=== PATIENT | female | born 1950 | race Caucasian/White ===

== ENCOUNTER 2017-04-20 09:04 | Inpatient (IN) ==
[2017-04-20 11:52] LABS: Amorphous Crystals,Urine Few /HPF (Few); Apearance,Urine CLOUDY (Clear); Bacteria,Urine Occasional /HPF (Few); Bilirubin,Urine Negative (Negative); Blood, Urine Negative (Negative); Glucose,Urine (UA) Negative (Negative); Ketones,Urine Negative (Negative); Mucus,Urine Occasional /LPF (Occasional); Nitrite,Urine Negative (Negative); Protein,Urine Negative; RBC,Urine 2 /HPF (0-4); Squamous Epithelial Cell,Urine Occasional /HPF (0-10); Urine Color Yellow (Yellow); Urine Specific Gravity 1.016 (1.001-1.035); Urine Urobilinogen < 2.0 EU/DL (0.2-1.0); WBC,Urine 2 /HPF (0-6)
[2017-04-20] MEDS ORDERED: ONDANSETRON 4 MG/2 ML VIAL IV STA (12:31)
[2017-04-20] MEDS ORDERED: MORPHINE 2 MG/1 ML SYRINGE IV STA (12:31)
[2017-04-20] MEDS ORDERED: SODIUM CHLORIDE 0.9% 1,000 ML IV STA (12:31)
[2017-04-20] MEDS ORDERED: ONDANSETRON 4 MG/2 ML VIAL ONE (12:47)
[2017-04-20] MEDS ORDERED: MORPHINE 2 MG/1 ML SYRINGE ONE (12:47)
[2017-04-20 12:52] LABS: Basophils % 0.2 % (0.0-0.8); Eosinophils % 0.1 % (0.00-10.9); Hematocrit 38.2 VOL% (35.7-47.0); Hemoglobin 12.8 GM/DL (12.0-16.0); Immature Granulocytes % 0.2 %; Immature Granulocytes Absolute 0.02 #; Lymphocytes # 1.3 10*3/uL (1.4-4.0); Lymphocytes % 14.3 % (21.3-54.2); Mean Corpuscular HGB Conc 33.5 GM/DL (32-36); Mean Corpuscular Hemoglobin 31 PG (27-34); Mean Corpuscular Volume 93.4 FL (87-102); Mean Platelet Volume 11.6 FL (9.6-12.0); Monocytes # 0.4 10*3/uL (0.11-0.8); Monocytes % 4.8 % (1.7-12.7); Neutrophils # 7.1 10*3/uL (1.4-7.4); Neutrophils % 80.4 % (38.7-73.9); Platelet Count 161 T/CUMM (130-400); Red Blood Count 4.09 MC/CUMM (3.8-5.5); Red Cell Distribution Width 13.4 % (9.3-17.3); White Blood Count 8.8 T/CUMM (4-12)
[2017-04-20 13:11] LABS: Lactic Acid 2.1 MMOL/L (0.4-2.0)
[2017-04-20 13:34] LABS: Alanine Aminotransferase 155 U/L (13-56); Albumin 4.1 G/DL (3.4-5.0); Alkaline Phosphatase 61 U/L (45-117); Amylase 41 U/L (25-115); Aspartate Amino Transferase 235 U/L (0-37); Blood Urea Nitrogen 14 MG/DL (7-18); Calcium 9.5 MG/DL (8.5-10.1); Glucose 116 MG/DL (74-106); Magnesium 2.1 MG/DL (1.8-2.4); Potassium 4.1 MMOL/L (3.5-5.1); Sodium 136 MMOL/L (136-145); Total Protein 7.8 G/DL (6.4-8.3)
[2017-04-20] MEDS ORDERED: ONDANSETRON 4 MG/2 ML VIAL IV PRN (14:39)
[2017-04-20] MEDS ORDERED: MORPHINE 10 MG/1 ML VIAL IV PRN (14:39)
[2017-04-20] MEDS ORDERED: BISACODYL 5 MG TABLET PO PRN (14:39)
[2017-04-20] MEDS ORDERED: ALUMINUM/MAGNES/SIMETH MAX STR 30 ML UDCUP PO PRN (14:39)
[2017-04-20] MEDS ORDERED: KETOROLAC 15 MG/1 ML VIAL IV PRN (14:39)
[2017-04-20] MEDS ORDERED: ACETAMINOPHEN 325 MG TABLET PO PRN (14:39)
[2017-04-20] MEDS: LACTATED RINGERS 1,000 ML IV SCH (16:01)
[2017-04-20] MEDS: PIPERACILLIN/TAZOBACTAM 3,375 MG in SODIUM CHLORIDE 0.9% 100 ML IV SCH (17:32)
[2017-04-20] MEDS: DOCUSATE SODIUM 100 MG CAPSULE PO SCH (20:10)
[2017-04-20] MEDS ORDERED: ENOXAPARIN 40 MG/0.4 ML SYRINGE SUBCUT SCH (21:00)
[2017-04-21] MEDS: PIPERACILLIN/TAZOBACTAM 3,375 MG in SODIUM CHLORIDE 0.9% 100 ML IV SCH ×3 (00:38→17:22)
[2017-04-21 05:55] LABS: Albumin 3.1 G/DL (3.4-5.0); Bilirubin,Direct 0.3 MG/DL (0.0-0.20); Bilirubin,Indirect 0.9 MG/DL (0.0-1.0); Bilirubin,Total 1.2 MG/DL (0.2-1.0); Total Protein 6.5 G/DL (6.4-8.3)
[2017-04-21] MEDS: LACTATED RINGERS 1,000 ML IV SCH (08:11)
[2017-04-21] MEDS ORDERED: fentaNYL 100 MCG/2 ML VIAL ONE (10:36)
[2017-04-21] MEDS ORDERED: MIDAZOLAM 2 MG/2 ML VIAL ONE (10:36)
[2017-04-21 10:38] LABS: PT Patient Result 10.6 SECS
[2017-04-21] MEDS ORDERED: PROPOFOL 200 MG/20 ML VIAL IV ONE (10:50)
[2017-04-21] MEDS ORDERED: LIDOCAINE 2% 5 ML VIAL ONE (10:50)
[2017-04-21] MEDS ORDERED: GLUCAGON 1 MG VIAL ONE (10:59)
[2017-04-21] MEDS ORDERED: INDOMETHACIN SUPP 50 MG SUPP RECTAL ONE (11:00)
[2017-04-21] MEDS ORDERED: ALPRAZolam 0.25 MG TABLET PO PRN (11:45)
[2017-04-21] MEDS ORDERED: FUROSEMIDE 20 MG TABLET PO PRN (11:45)
[2017-04-21] MEDS ORDERED: ESTRADIOL TRANSDERM SCH (13:00)
[2017-04-21] MEDS: DOCUSATE SODIUM 100 MG CAPSULE PO SCH ×2 (14:25→21:51)
[2017-04-21] MEDS: PANTOPRAZOLE 40 MG TABLET PO SCH (14:26)
[2017-04-21] MEDS: DEXT 5% NACL 0.45% KCL 20 MEQ 20 MEQ/1,000 ML BAG IV SCH ×2 (14:29→21:52)
[2017-04-21] MEDS: GABAPENTIN 600 MG TABLET PO SCH (21:51)
[2017-04-22] MEDS: PIPERACILLIN/TAZOBACTAM 3,375 MG in SODIUM CHLORIDE 0.9% 100 ML IV SCH ×3 (01:10→16:44)
[2017-04-22] MEDS: DEXT 5% NACL 0.45% KCL 20 MEQ 20 MEQ/1,000 ML BAG IV SCH ×4 (05:49→23:23)
[2017-04-22 05:53] LABS: Basophils % 0.5 % (0.0-0.8); Eosinophils # 0.2 10*3/uL (0.0-0.87); Eosinophils % 2.7 % (0.00-10.9); Hematocrit 31.3 VOL% (35.7-47.0); Hemoglobin 10.7 GM/DL (12.0-16.0); Immature Granulocytes % 0.3 %; Immature Granulocytes Absolute 0.02 #; Lymphocytes # 2.4 10*3/uL (1.4-4.0); Lymphocytes % 37.1 % (21.3-54.2); Mean Corpuscular HGB Conc 34.2 GM/DL (32-36); Mean Corpuscular Hemoglobin 32 PG (27-34); Mean Corpuscular Volume 93.2 FL (87-102); Mean Platelet Volume 12.2 FL (9.6-12.0); Monocytes # 0.5 10*3/uL (0.11-0.8); Monocytes % 8.5 % (1.7-12.7); Neutrophils # 3.3 10*3/uL (1.4-7.4); Neutrophils % 50.9 % (38.7-73.9); Platelet Count 124 T/CUMM (130-400); Red Blood Count 3.36 MC/CUMM (3.8-5.5); Red Cell Distribution Width 13.8 % (9.3-17.3); White Blood Count 6.4 T/CUMM (4-12)
[2017-04-22 06:17] LABS: Albumin 2.9 G/DL (3.4-5.0); Bilirubin,Total 0.8 MG/DL (0.2-1.0); Calcium 7.6 MG/DL (8.5-10.1); Osmolality,Calculated 280.1 MOS/KG (273-304); Potassium 3.8 MMOL/L (3.5-5.1)
[2017-04-22] MEDS: LEVOTHYROXINE 50 MCG TABLET PO SCH (06:37)
[2017-04-22] MEDS: DOCUSATE SODIUM 100 MG CAPSULE PO SCH ×2 (09:00→20:38)
[2017-04-22] MEDS: METOPROLOL SUCCINATE XL 25 MG TABLET PO SCH (09:04)
[2017-04-22] MEDS ORDERED: TISSUE ADHESIVE 1 EACH APPLICATOR TOP ONE ×2 (10:56→12:25)
[2017-04-22] MEDS ORDERED: BUPIVACAINE 0.25% 50 ML VIAL ONE (10:57)
[2017-04-22] MEDS ORDERED: PROPOFOL 200 MG/20 ML VIAL IV ONE (12:42)
[2017-04-22] MEDS ORDERED: fentaNYL 100 MCG/2 ML VIAL ONE (12:43)
[2017-04-22] MEDS ORDERED: MIDAZOLAM 2 MG/2 ML VIAL ONE (12:43)
[2017-04-22] MEDS ORDERED: KETOROLAC 30 MG/1 ML VIAL ONE (12:43)
[2017-04-22] MEDS ORDERED: ACETAMINOPHEN 1,000 MG/100 ML VIAL IV ONE (12:43)
[2017-04-22] MEDS ORDERED: ROCURONIUM 100 MG/10 ML VIAL IV ONE (12:43)
[2017-04-22] MEDS ORDERED: LIDOCAINE 100 MG/5 ML SYRINGE ONE (13:11)
[2017-04-22] MEDS ORDERED: LIDOCAINE 2% 20 ML VIAL MISC INJ ONE (13:14)
[2017-04-22] MEDS: PANTOPRAZOLE 40 MG TABLET PO SCH (16:45)
[2017-04-22] MEDS: ASPIRIN CHEW 81 MG TABLET PO SCH (16:45)
[2017-04-22] MEDS ORDERED: BENZONATATE 100 MG CAPSULE PO PRN (17:00)
[2017-04-22] MEDS: GABAPENTIN 600 MG TABLET PO SCH (20:38)
[2017-04-23] MEDS: PIPERACILLIN/TAZOBACTAM 3,375 MG in SODIUM CHLORIDE 0.9% 100 ML IV SCH ×2 (00:50→08:15)
[2017-04-23] MEDS: LEVOTHYROXINE 50 MCG TABLET PO SCH (06:47)
[2017-04-23] MEDS: DEXT 5% NACL 0.45% KCL 20 MEQ 20 MEQ/1,000 ML BAG IV SCH ×2 (07:38→11:46)
[2017-04-23] MEDS: METOPROLOL SUCCINATE XL 25 MG TABLET PO SCH (08:14)
[2017-04-23] MEDS: ASPIRIN CHEW 81 MG TABLET PO SCH (08:14)
[2017-04-23] MEDS: DOCUSATE SODIUM 100 MG CAPSULE PO SCH (08:14)
[2017-04-23] MEDS: PANTOPRAZOLE 40 MG TABLET PO SCH (08:14)
[2017-04-23 11:19] VITALS: BP 111/65
== END 2017-04-23 12:05 | disposition home or self-care (01) | DRG 419 ==
LOC: N.ED 09:04 → N.EDINP 14:39 → N.3E 15:30
PROVIDERS: ADMIT Surgery; ATTEND Surgery
PROC: LAPCHOL (2017-04-22 11:36)